=== PATIENT | male | born 1975 | race Caucasian/White ===

== ENCOUNTER 2017-11-23 10:00 | Day surgery (SDC) | payer OTHER ==
[~2017-11-23] VITALS: Ht 180.3 cm; Wt 86.2 kg
[~2017-11-23 10:00] MED LIST: AMBIEN10 MG PO; ANTABUSE250 MG PO; ATARAX,VISTARIL25 MG PO; AUGMENTIN875 MG PO; CEFTIN500 MG PO; CHLORDIAZEPOXID25 MG PO; DESYREL300 MG PO; ELAVIL25 MG PO; ESCITALOPRAM OX10 MG PO; FOLIC ACID1 MG PO; HUMIRA40 MG/0.1 SC; HUMIRA40 MG/0.8 SC; LEXAPRO20 MG PO; MOBIC15 MG PO; MS CONTIN,ORAMO15 M1 PO; NICODERM CQ1 EAC1 TD; NICOTINE PATCH1 EAC2 TD; NIZORAL SHAMPO120 ML TP; PANTOPRAZOLE SO40 MG PO; PERCOCET 5/31 TABLET PO; PROTONIX40 MG PO; RISPERDAL1 MG PO; THIAMINE HCL100 MG PO; TOPICORT 0.25%60 GM TP; WELLBUTRIN XL150 MG PO; WELLBUTRIN XL300 MG PO
[2017-11-23 10:25] VITALS: BP 102/59
[2017-11-23 18:00] VITALS: BP 134/78
[2017-11-23 19:20] VITALS: BP 123/71
== END 2017-11-23 19:30 | disposition home or self-care (01) ==
LOC: SDC 10:00
DX: M20.41 Other hammer toe(s) (acquired), right foot (principal); S93.111A Dislocation of interphalangeal joint of right great toe, initial encounter; S93.144A Subluxation of metatarsophalangeal joint of right lesser toe(s), initial encounter; S93.124A Dislocation of metatarsophalangeal joint of right lesser toe(s), initial encounter; L40.50 Arthropathic psoriasis, unspecified; F41.8 Other specified anxiety disorders; K21.9 Gastro-esophageal reflux disease without esophagitis; Z87.891 Personal history of nicotine dependence; Z79.891 Long term (current) use of opiate analgesic
CPT/HCPCS: 73630; 76000; 93005; C1769; J0131; J0330; J0690; J1100; J1170; J2250; J2405; J3010; S0020

== ENCOUNTER 2018-05-07 17:42 | Inpatient (IN) | payer OTHER ==
[~2018-05-07] VITALS: Ht 180.3 cm; Wt 95.5 kg
[2018-05-07 18:56] LABS: BASOPHIL (%) 0.8 % (0-1); BASOPHIL COUNT 0.1 K/uL (0-0.1); EOSINOPHIL (%) 1.9 % (0-5); EOSINOPHIL COUNT 0.2 K/uL (0-0.3); HEMATOCRIT 32.1 % (38.0-50.0); HEMOGLOBIN 10.8 G/DL (12.5-16.6); IMMATURE GRANULOCYTE (%) 0.4 % (0.0-0.7); LYMPHOCYTE (%) 11.3 % (15-42); LYMPHOCYTE COUNT 1.3 K/uL (1.0-2.8); MCH 30.9 PG (29.0-34.0); MCHC 33.6 G/DL (30.0-36.0); MONOCYTE (%) 9.8 % (3-12); MONOCYTE COUNT 1.2 K/uL (0-0.8); NEUTROPHIL (%) 75.8 % (45-76); NEUTROPHIL COUNT 8.9 K/uL (1.8-6.4); PLATELET COUNT 179 K/uL (156-360); RBC DIS.WIDTH-CV 13.9 % (11.8-14.6); RBC DIS.WIDTH-SD 46.7 % (39-53); RED BLOOD COUNT 3.49 M/uL (4.00-5.50); WHITE BLOOD COUNT 11.8 K/uL (4.1-10.2)
[2018-05-07 19:06] LABS: CHLORIDE 104 mEq/L (99-109); POTASSIUM 4.3 mEq/L (3.7-5.4); SODIUM 139 mEq/L (136-147)
[2018-05-07 19:08] LABS: GLUCOSE 93 mg/dL (70-99)
[2018-05-07 19:11] LABS: SERUM ETHYL ALCOHOL < 10 mg/dL
[2018-05-07 19:12] LABS: CREATININE 2.6 mg/dL (0.6-1.3); GFR ESTIMATE (CALCULATED) 29 mL/min/ (58.99-99999)
[2018-05-07 19:13] LABS: UREA NITROGEN (BUN) 28 mg/dL (9-23)
[2018-05-07 19:18] LABS: TROP-I INTERPRETATION NEGATIVE; TROPONIN-I < 0.01 ng/mL (0.0-0.30)
[2018-05-07 20:38] LABS: ACETAMINOPHEN (TYLENOL) < 10 mcg/mL (10-30); SALICYLATE < 5.0 MG/DL (15-30)
[2018-05-07 22:19] LABS: APPEARANCE CLEAR ((CLEAR)); BILIRUBIN NEGATIVE; BLOOD NEGATIVE; COLOR YELLOW ((YELLOW)); GLUCOSE (STRIP) NEGATIVE; KETONES NEGATIVE; LEUKOCYTES NEGATIVE; NITRITE NEGATIVE; PROTEIN (STRIP) 30; SPECIFIC GRAVITY 1.015 (1.000-1.030); UCUL ADDED? NO; UROBILINOGEN 0.2 MG/DL (0.2-1.0)
[2018-05-07 22:33] LABS: AMPHETAMINE NEGATIVE (500 ng/mL); BARBITURATES NEGATIVE (200 ng/mL); BENZODIAZEPINES NEGATIVE (150 ng/mL); BUPRENORPHINE NEGATIVE (10 ng/mL); COCAINE NEGATIVE (150 ng/mL); METHADONE NEGATIVE (200 ng/mL); METHAMPHETAMINE NEGATIVE (500 ng/mL); OPIATES (MORPHINE) PRESUMPTIVE POSITIVE (100 ng/mL); OXYCODONE NEGATIVE (100 ng/mL); PHENCYCLIDINE NEGATIVE (25 ng/mL); PROPOXYPHENE NEGATIVE (300 ng/mL); THC CANNABINOIDS NEGATIVE (50 ng/mL); TRICYCLIC ANTIDEPRESSANTS NEGATIVE (300 ng/mL)
[2018-05-08] VITALS (18 sets, daily range): BP systolic 105–190; BP diastolic 65–109
[2018-05-08 00:09] LABS: PCO2 35 mm Hg (35-45); PO2 114 mm Hg (80-100); pH 7.46 (7.35-7.45)
[2018-05-08 00:10] LABS: BASE EXCESS 1.2 mEq/L (-3 to +3); BICARBONATE 24.9 mEq/L (22-26); CARBOXY HGB 1.5 % (0-5); COMMENTS - BLOOD GASES C+; DEVICE VENT; FI02 50 %; MECHANICAL RATE 16 resp/min; MODE ACVC; SITE RB
[2018-05-08 00:11] LABS: PEEP 5 CM/H20; TIDAL VOLUME 500 ML; TOTAL RESP RATE 16 resp/min
[2018-05-08] MEDS ORDERED: MORPHINE SULFAT15 MG PO (02:40)
[2018-05-08] MEDS ORDERED: EMBEDA ER 30-11 EACH PO (02:40)
[2018-05-08] MEDS ORDERED: BRINTELLIX5 MG PO (02:41)
[2018-05-08] MEDS ORDERED: DESYREL300 MG PO (02:42)
[2018-05-08] MEDS ORDERED: WELLBUTRIN XL300 MG PO (02:44)
[2018-05-08] MEDS ORDERED: HYDROXYZINE PAM50 MG PO (02:46)
[2018-05-08] MEDS ORDERED: AMBIEN10 MG PO (02:48)
[2018-05-08] MEDS ORDERED: AMOX TR-K CLV1 EAC3 PO (02:49)
[2018-05-08] MEDS ORDERED: DOXYCYCLINE HY100 MG PO (02:51)
[2018-05-08] MEDS ORDERED: SINEQUAN25 MG PO (02:52)
[2018-05-08] MEDS ORDERED: PROMETHAZINE HC25 M1 PO (02:54)
[2018-05-08 03:12] LABS: CREATINE KINASE 941 IU/L (1-294)
[2018-05-08 03:39] LABS: TRIGLYCERIDES 105 MG/DL (Normal: <150)
[2018-05-08 05:55] LABS: HEMATOCRIT 30.8 % (38.0-50.0); MCH 30.3 PG (29.0-34.0); MCHC 32.5 G/DL (30.0-36.0); MCV 93.3 FL (86-99); PLATELET COUNT 171 K/uL (156-360); RBC DIS.WIDTH-CV 13.9 % (11.8-14.6); WHITE BLOOD COUNT 7.9 K/uL (4.1-10.2)
[2018-05-08 06:06] LABS: CHLORIDE 108 MEQ/L (99-109); GLUCOSE 88 mg/dL (70-99); MAGNESIUM 1.4 mg/dl (1.3-2.7); PHOSPHORUS 1.6 mg/dL (2.5-4.9); POTASSIUM 3.7 MEQ/L (3.7-5.4); SODIUM 141 MEQ/L (136-147); UREA NITROGEN (BUN) 21 mg/dL (9-23)
[2018-05-08 06:10] LABS: CREATININE 1.8 MG/DL (0.6-1.3); GFR ESTIMATE (CALCULATED) 44 mL/min/ (58.99-99999)
[2018-05-08 06:55] LABS: CREATINE KINASE 687 IU/L (1-294)
[2018-05-08] MEDS ORDERED: ESCITALOPRAM OX20 MG PO (15:11)
[2018-05-08] MEDS ORDERED: DOXEPIN HCL25 MG PO (15:14)
[2018-05-08] MEDS ORDERED: MELOXICAM15 MG PO (15:16)
[2018-05-08] MEDS ORDERED: BRINTELLIX10 MG PO (15:17)
[2018-05-08] MEDS ORDERED: RISPERIDONE1 MG PO (15:18)
[2018-05-08] MEDS ORDERED: ZOLPIDEM TARTRA10 MG PO (15:19)
[2018-05-08] MEDS ORDERED: DOXYCYCLINE MO100 MG PO (15:23)
[2018-05-09] VITALS (13 sets, daily range): BP systolic 131–183; BP diastolic 83–123
[2018-05-09 05:23] LABS: HEMATOCRIT 27.8 % (38.0-50.0); HEMOGLOBIN 9.2 G/DL (12.5-16.6); MCH 30.6 PG (29.0-34.0); MCHC 33.1 G/DL (30.0-36.0); MCV 92.4 FL (86-99); PLATELET COUNT 154 K/uL (156-360); RBC DIS.WIDTH-CV 13.6 % (11.8-14.6); RBC DIS.WIDTH-SD 46.4 % (39-53); RED BLOOD COUNT 3.01 M/uL (4.00-5.50); WHITE BLOOD COUNT 6.9 K/uL (4.1-10.2)
[2018-05-09 05:59] LABS: CHLORIDE 110 MEQ/L (99-109); CREATINE KINASE 325 IU/L (1-294); GFR ESTIMATE (CALCULATED) > 59 mL/min/ (58.99-99999); GLUCOSE 83 mg/dL (70-99); POTASSIUM 3.7 MEQ/L (3.7-5.4); SODIUM 139 MEQ/L (136-147); UREA NITROGEN (BUN) 13 mg/dL (9-23)
[2018-05-09 06:03] LABS: CREATININE 1.3 MG/DL (0.6-1.3)
[2018-05-09 09:15] LABS: MAGNESIUM 1.7 mg/dl (1.3-2.7); PHOSPHORUS 2.8 mg/dL (2.5-4.9)
[2018-05-10] VITALS (8 sets, daily range): BP systolic 140–189; BP diastolic 63–101
[2018-05-11 03:39] VITALS: BP 195/110
[2018-05-11 07:17] VITALS: BP 163/80
[2018-05-11 13:55] VITALS: BP 144/80
[2018-05-12] VITALS: BP 165/82
[2018-05-12 07:46] VITALS: BP 153/90
[2018-05-12] MEDS ORDERED: CLONIDINE HCL0.2 MG PO (10:09)
[2018-05-12] MEDS ORDERED: CHLORDIAZEPOXID25 MG PO (10:45)
== END 2018-05-12 15:12 | disposition home or self-care (01) | DRG 917 ==
LOC: EME 17:42 → EDOF 05-08 00:13 → 5SOUTH 05-08 00:13 → 4WEST 05-08 00:13 → ENRESERV 05-08 00:14 → 4WEST 05-08 01:03 → ENRESERV 05-09 12:00 → 5SOUTH 05-09 12:33
PROVIDERS: Emergency Medicine; Surgery
PROC: 5A1935Z Respiratory Ventilation, Less than 24 Consecutive Hours (ICD-10-PCS; principal; 2018-05-08)
PROC: 0CCM7ZZ Extirpation of Matter from Pharynx, Via Natural or Artificial Opening (ICD-10-PCS; principal; 2018-05-08)
PROC: 0BH17EZ Insertion of Endotracheal Airway into Trachea, Via Natural or Artificial Opening (ICD-10-PCS; principal; 2018-05-08)
DX: T40.2X1A Poisoning by other opioids, accidental (unintentional), initial encounter (principal); J96.00 Acute respiratory failure, unspecified whether with hypoxia or hypercapnia; G93.40 Encephalopathy, unspecified; N17.9 Acute kidney failure, unspecified; E86.0 Dehydration; D62 Acute posthemorrhagic anemia; T17.298A Other foreign object in pharynx causing other injury, initial encounter; R44.0 Auditory hallucinations; R44.1 Visual hallucinations; F10.239 Alcohol dependence with withdrawal, unspecified; Y90.0 Blood alcohol level of less than 20 mg/100 ml; E83.42 Hypomagnesemia; E78.5 Hyperlipidemia, unspecified; F17.200 Nicotine dependence, unspecified, uncomplicated; F41.9 Anxiety disorder, unspecified; G89.29 Other chronic pain; K21.9 Gastro-esophageal reflux disease without esophagitis; L40.9 Psoriasis, unspecified; I10 Essential (primary) hypertension; F32.9 Major depressive disorder, single episode, unspecified; M06.9 Rheumatoid arthritis, unspecified; Z79.891 Long term (current) use of opiate analgesic
CPT/HCPCS: 36600; 70450; 71045; 71046; 80048; 81003; 82140; 82330; 82550; 82550 91; 83605; 83735; 83880; 84100; 84478; 84484; 84999; 85025; 85027; 87070; 87205; 87641; 93005; 94002; 94760; 94799; 99281; 99285; G0480; J0330; J0360; J1644; J2060; J2250; J2704; J3010; J3411; J3475; J7030; J7040; S0028